=== PATIENT | female | born 2005 | race Caucasian/White ===

== ENCOUNTER 2024-03-21 09:10 | Outpatient (OUT) | payer BC, SELFPAY ==
--- NOTE | 2024-03-21 09:12 | US_ITS ---
[address] [address] Patient Name: HAM MORRISON MRN: [id number] date: 2005 Sex: F Assigned Patient Location: Current Patient Location: Accession/Order Number: [id number] Exam Date: 03/21/2024 09:16 Report Date: 03/25/2024 10:38 At the request of: EDWARD HERNANDEZ Procedure: US pelvis transvaginal EXAMINATION: US pelvis transvaginal HISTORY: INTRAUTERINE DEVICE SURVEILLANCE Z30.431 COMPARISON: No relevant comparison available. TECHNIQUE: Transabdominal and/or transvaginal sonographic examination was performed as indicated by examination type. FINDINGS: UTERUS: Normal size and appearance. Uterus size: 8.3 x 3.4 x 4.0 cm ENDOMETRIUM: Thickened inhomogeneous endometrium. IUD within fundal endometrial cavity. Endometrial thickness: 3 mm RIGHT OVARY: Normal size and appearance. Duplex Doppler demonstrates normal waveform and flow; resistive index 0.6. Ovary size: 3.3 x 2.9 x 2.2 cm LEFT OVARY: Normal size and appearance. Duplex Doppler demonstrates normal waveform and flow; resistive index 0.5. Ovary size: 3.4 x 2.0 x 2.0 cm CUL-DE-SAC: Unremarkable. No significant free fluid. BLADDER: Unremarkable. OTHER: None. US/US pelvis transvaginal IMPRESSION: 1. IUD within fundal endometrial cavity appearing to be in good position. 2. No abnormal or suspicious findings. Electronically authenticated by: SANTINO MELENDEZ Date: 03/25/2024 10:38
== END 2024-03-21 09:11 | disposition home or self-care (01) ==
LOC: US 09:10
PROVIDERS: PCP Internal Medicine; Visit Provider Obstetrics & Gynecology
DX: R25.2 Cramp and spasm (principal); Z30.431 Encounter for routine checking of intrauterine contraceptive device
CPT/HCPCS: 76830

== ENCOUNTER 2025-01-05 13:33 | Outpatient (REF) | payer BC, SELFPAY ==
--- OUTSIDE RECORDS SUMMARY | 2022-10-22 09:40 | XMS_ITS | Continuity of Care Document ---
Author [facility] Address [address] [place] [address] [place] [address] Phone Care Team Providers Care Aerobics Teacher Name Role Phone Damaris STRICKLAND, Kieran Unavailable Unavailable Allergies, Adverse Reactions, Alerts Substance Reaction Status Criticality No Known Allergies Active No Inform ation Medications Medication Instructions Dosage Effective Dates (start - stop) Status Comments Xtm-Bz-Medgla 0.18 mg/0.215 mg/0.25 mg-25 mcg tablet take 1 tablet by oral route every day 1.00 tablet - Active Procedures Procedure Date OFFICE/OUTPATIENT VISIT, [facility] URINALYSIS, AUTO, W/O SCOPE OFFICE/OUTPATIENT VISIT, [facility] Advance Directives Directive Yes / No Effective Date File Name No Information Encounters Encounter Description Practice Location Reason(s) For Visit Diagnoses Date Provider Providers Copied on Encounter OFFICE/OUTPAT IENT VISIT, [facility], [address] [place] [address], [id number], [place] tel:[phone] [facility] cold symptoms (chief complaint) NonsmokerAcute rhinitis Damaris Alcaraz. [address], [place], [id number] , [place]. tel:[phone] Referring Provider: Kieran Ocampo MD, [address] [place], [address] . tel:[phone] OFFICE/OUTPAT IENT VISIT, [facility], [address], [place], [id number], [place] tel:[phone] [facility] UTI (chief complaint) Acute UTIDysuria Joey RUSTS-PAC Maia. [address], [place], [id number] , [place]. tel:[phone] Referring Provider: Maia Cook NATALIA, [address] [place], [address] . tel:[phone] Family History Family Member Type Diagnosis Age At Onset Father Problem Hypertension Father Problem Diabetes mellitus Payers Payer name Insurance type Covered alliance party ID Talib monahan(goldie Arellano [id number] Social History Type Description Quantity Date Captured Comments Alcohol Use Details Unknown Caffeine Use Details Unknown Tobacco Use Status Current non-smoker Smoking Status Never smoker Non-Smoking Tobacco Use Details : No Details Available : No Details Available Sex Female Sexual Orientation Lesbian, rose or homosexual Vital Signs Date / Time: Height Weight BMI Pulse Rate Blood Pressure Temperature Respiratory Rate Body Surface Area Head Circumference Head Circ. Percentile Wt./Jesse. Percentile BMI percentile Pulse Ox Inhaled Ox 2:23 PM 63.00 in 51.256 kg (113.00 lbs) 20.0 2 kg/m eter (2) 77 /min 108/59 mm[Hg] 98.10 F 16 /min 29 97 % Chief Complaint And Reason For Visit From encounter dated '10/22/2022 13:40'. cold symptoms (chief complaint) Reason For Referral Reason For Referral No Information Plan Of Treatment Date Type Action Status Patient Education Urinary Tract Infection in Female Teens: Care Instructions completed Future Order: Lab Order Urine Cu lture ([id number]), Ordered on: Ordered History Of Present Illness Encounter Date Complaint History Of Prese nt Illness Comments: Itzel newman, age 16, here today for evaluation of cold symptoms. ::::::: PROBLEM ::::::: Cold symptoms::::::: HPI :::::::Ongoing for about 4-5 days now, started off with tickle in the back of her throat elevated a few days later by nasal congestion, ears feeling plugged, postnasal drip with cough and now mild sore throat.. No associated muscle aches, fatigue, fevers or chills, sinus pain or pressure redness of breath.. Denies any history of chronic rhinitis. Has had previous rhinoplasty for aesthetic purposes. No known sick contacts.::::::: ASSESSMENT/PLAN :::::::Acute rhinitis:::::::::::::::::::::::::::::::::::::::::::::::: :::::::::Questionable if this is a acute viral URI versus acute rhinitis possibly secondary to allergen exposureFor now, advised daily nasal saline rinses followed by daily Flonase along with the daily second-generation oral antihistamine.Low suspicion for strep pharyngitis with a Centor score of 0.Advised that if symptoms persist, to follow-up with PCP for possible referral to an sales special agent. 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[employer], studying nursing ::::::: EXAMINATION :::::::EXAMINATION :::::::--Constitutional: well appearing in NAD Eyes: EOMI, nonicteric-sclera ENMT: MMM, posterior oropharynx moist and pink without any tonsillar exudate, tonsils are hypertrophied bilaterally (baseline for patient), severely swollen bilateral nasal turbinates with right worse than the left, external ears appear normal, evidence of serous fluid noted behind both TMs, there are non erythematous and nonbulging, neck is supple Cardiovascular: RRR, normal S1/S2, no murmurs, gallops or rubs Respiratory: normal work of breathing, Clear to auscultation, no wheezes/rales/rhonchi Abdomen/Gastrointestinal: nontender, nondistended Musculoskeletal: No edema, no deformities Integumentary: observed skin without any concerning overlying skin changes such as rash, erythema, ecchymosis or concerns for active infection Neurological: Alert, no concerns for confusionPsychiatric: normal thought content, normal judgment Hematologic/Lymphatic: no petechiae, no ecchymosis on observed skin This note was created with the assistance of a speech-recognition program. While intending to generate a document that accurately reflects the content of the visit, no guarantee can be provided that every mistake has been identified and corrected by editing I spent 20 mins caring for this patient today, reviewing patient's chart and test results, seeing and counseling the patient, documenting in the record. cold symptoms UTI Onset: 10 Days. Presenting/Initial symptoms include dysuria, frequency, hematuria and urgency. Symptoms are not associated with diabetes, , recent catheterization or recurring urinary tract infection. Aggravating factors include urination. Denies relieving factors. Associated symptoms include dysuria, frequency, hematuria and vaginal discharge. Additional information: thick yellow vaginal discharge, odor. No itching. denies STI. Comments: Itzel newman presents with possible UTI. Is having urinary frequency, burning, bleeding, and urgency x 10 days. No fever, chills, nausea, vomiting, or back pain. Was on Amoxicillin for strep throat recently. LMP-Apr 07. No concerns for STIs. Reports that she was having some thick vaginal discharge but that has improved. Functional Status Date Functional Assessmen t No Information Instructions Date Instruction Additional Infor mation Urinary tract infect ion is an infection of the kidneys, bladder or urethra. Take all medication as directed. If prescribed Pyridium know that it can discolor your urine. Take Tylenol or Motrin for pain. Drink plenty of fluids and avoid Caffeine. Cranberry juice helps w/ urinary tract health. If you develop fever, chills, severe back or flank pain, nausea or vomiting go to the ER. Follow up with PCP in 24-48 hours if no improvement in symptoms. Related to Acute UTI Assessments Type Assessment Date assessment Nonsmoker assessment Acute rhinitis Patient Care Teams Name Effective Dates (start - stop) Status Members No Information
--- OUTSIDE RECORDS SUMMARY | 2025-01-05 11:00 | XMS_ITS | Encounter Summary ---
Author Organization [facility] Address [address] [place] [address] Care Team Providers Care Web Manager Name Role Phone Brendan Andres MD Primary Care Provider [phone] Reason for Visit * Reason Comments Gynecologic Exam Encounter Details Date Type Department Care Team (Late st Contact Info) Description 01/05/2025 11:00 AM EDT Office Visit [facility] [address] [facility] [address] Nikki Garcia PA [address] [place], [facility] Well woman exam with routine gynecological exam; Breast tenderness in female Social History Tobacco Use Types Packs/Day Years Used Date Smoking Tobacco: Never Smokeless Tobacco: Never Alcohol Use Standard Drinks/Week Comments Never 0 (1 standard drink = 0.6 oz pur e alcohol) Comments No Sex and Gender Information Value Date Recorded Sex Assigned at Not on file Legal Sex Female 7:00 PM EDT Gender Identity Not on file Sexual Orientation Not on file documented as of this encounter Last Filed Vital Signs Vital Sign Reading Time Taken Comments Blood Pressure 98/60 01/05/2025 11:12 AM EDT Pulse - - Temperature - - Respiratory Rate - - Oxygen Saturation - - Inhaled Oxygen Concentration - - Weight 53.1 kg (117 lb 1.9 oz) 01/05/2025 11:12 AM EDT Height - - Body Mass Index 20.75 11/01/2022 12:00 PM EDT documented in this encounter Progress Notes * GAIL Reyes - 01/05/2025 11:00 AM EDT Reason for Appointment: Patient ID: Maggie Rodrigues is a 19 y.o. female who presents for No chief complaint on file. Patient presents today for Annual Exam. MEDICATIONS Current Outpatient Medications Medication Instructions escitalopram (LEXAPRO) 10 mg, Oral, Daily RT ALLERGIES No Known Allergies PROBLEMS Active Ambulatory Problems Diagnosis Date Noted No Active Ambulatory Problems Resolved Ambulatory Problems Diagnosis Date Noted No Resolved Ambulatory Problems Past Medical History: Diagnosis Date Contraceptive management Depot contraception Heart murmur Irregular menses Nasal obstruction Negative test HISTORY PAST MEDICAL HISTORY SOCIAL HISTORY Past Medical History: Diagnosis Date Contraceptive management Depot contraception Heart murmur Irregular menses Nasal obstruction Negative test Social History Tobacco Use Smoking status: Never Smokeless tobacco: Never Substance Use Topics Alcohol use: Never Drug use: Never FAMILY HISTORY Family History Problem Relation Name Age of Onset Diabetes Father Hypertension Father Hyperlipidemia Maternal Grandmother Cancer Paternal Grandmother SURGICAL HISTORY Past Surgical History: Procedure Laterality Date HERNIA REPAIR Inguinal , Umbilical REVIEW OF SYSTEMS Review of Systems: Review of Systems Constitutional: Negative. HENT: Negative. Eyes: Negative. Respiratory: Negative. Cardiovascular: Negative. Gastrointestinal: Negative. Genitourinary: Negative. Musculoskeletal: Negative. Skin: Negative. Neurological: Negative. All other systems reviewed and are negative. Hematological: Negative. Endocrine: Negative. Allergic/Immunologic: Negative. OBJECTIVE Objective: Physical Exam Constitutional: Appearance: Normal appearance. She is well-developed. Genitourinary: Vulva normal. Right Adnexa: not tender and no mass present. Left Adnexa: not tender and no mass present. No cervical discharge. IUD strings visualized. Breasts: Breasts are soft. Right: Normal. Left: Tenderness present. HENT: Head: Normocephalic. Nose: Nose normal. Mouth/Throat: Mouth: Mucous membranes are moist. Cardiovascular: Rate and Rhythm: Normal rate and regular rhythm. Pulmonary: Effort: Pulmonary effort is normal. Breath sounds: Normal breath sounds. Abdominal: General: Bowel sounds are normal. There is no distension. Palpations: Abdomen is soft. Tenderness: There is no abdominal tenderness. There is no guarding or rebound. Musculoskeletal: General: No swelling. Normal range of motion. Cervical back: Normal range of motion. Right lower leg: No edema. Left lower leg: No edema. Neurological: General: No focal deficit present. Mental Status: She is alert and oriented to person, place, and time. Skin: General: Skin is warm and dry. Psychiatric: Mood and Affect: Mood normal. Behavior: Behavior normal. Vitals and nursing note reviewed. Exam conducted with a gmat instructor present. Vitals: Estimated body mass index is 18.44 kg/m?? as calculated from the following: Height as of 11/01/22: 5' 3 . Weight as of 11/19/23: 104 lb 1.9 oz. BP: No LMP recorded. ASSESSMENT & PLAN ICD-10-CM 1. Well woman exam with routine gynecological exam Z01.419 Pap Smear 2. Breast tenderness in female N64.4 LEFT BREAST TENDERNESS Patient stated that she has the Yanci IUD and desires any urinary complaints. Patient has occasional spotting, but routine cycles & nothing bothersome. Patient voiced that she did have a left breast lump near 9-10 o'clock position for about a month. Patient voiced that the lump is since gone, but patient is having nipple tenderness. Breast exam benign today, we ill order US for reassurance and due to continued nipple tenderness, no mass palpated or discharge Annual Exam: Patient presents today for an annual exam. Patient states she is doing well and complaints listed above. Ordered breast ultrasound to have done at either [facility] or [facility]. Pap was obtained without difficulty. Keflex sent to patients pharmacy for breast tenderness. Orders Placed This Encounter Procedures Left breast US complete Follow Up: Patient is to return in one year for annual unless needed otherwise. Documented by Marnie Monzon LPN on behalf of: GAIL Reyes documented in this encounter Plan of Treatment Upcoming Encounters Date Type Department Care Team (Late st Contact Info) Description 01/11/2026 11:00 AM EDT Office Visit [facility] [address] [facility] [address] Nikki Garcia PA [address] [place] [address] Scheduled Orders Name Type Priority Associated Diagnoses Orde r Schedule Pap Smear Pathology and Cytology Routine Well woman exam with routine gynecological exam Ordered: 01/05/2025 Left breast US complete Imaging Routine Breast tenderness in female Expected: 01/05/2025, Expires: 03/07/2026 documented as of this encounter Visit Diagnoses Diagnosis Well woman exam with routine gynecological exam Routine gynecological examination Breast tenderness in female documented in this encounter Care Teams Web Manager Relationship Specialty Start Date End Date Brendan Andres MD [address] [place] [address], [address] [place] [address] PCP - General Family Medicine 10/15/23 documented as of this encounter
--- OUTSIDE RECORDS SUMMARY | 2025-01-05 13:36 | XMS_ITS | Encounter Summary ---
Author Organization [facility] Address [id number] [address] [place] [address] Care Team Providers Care Human Intelligence Name Role Phone Brendan Andres MD Primary Care Provider [phone] Encounter Details Date Type Department Care Team (Late st Contact Info) Description 03/27/2024 Orders Only [facility] [address] [facility] [address] [place] [address] External, Scanning Provider Social History Tobacco Use Types Packs/Day Years Used Date Smoking Tobacco: Never Smokeless Tobacco: Never Alcohol Use Standard Drinks/Week Comments Never 0 (1 standard drink = 0.6 oz pur e alcohol) PHQ-2 Answer Date Recorded Total Score 0 09/10/2023 Childcare Answer Date Recorded Childcare Unknown 01/14/2019 Employment Answer Date Recorded Employment Unknown 01/14/2019 Purpose - Life Answer Date Recorded Purpose and direction in life Unknown Comments No Sex and Gender Information Value Date Recorded Sex Assigned at Not on file Legal Sex Female 12:01 PM EDT Gender Identity Not on file Sexual Orientation Not on file documented as of this encounter Plan of Treatment Not on file documented as of this encounter Procedures Procedure Name Priority Date/Time Associated Diagnosis Comments US TRANSVAGINAL Routine 03/21/2024 documented in this encounter Results * US TRANSVAGINAL (03/21/2024) 03/21/2024 us Scanning Provider External [facility] Final Result MANUALLY TRANSCRIBED RESULTS documented in this encounter Visit Diagnoses Not on filedocumented in this encounter Additional Health Concerns Assessment Noted Time PHQ-9 Depression Total Score: 0 09/10/19 24 10:19 AM EST documented as of this encounter Care Teams Human Intelligence Relationship Specialty Start Date End Date Brendan Andres MD [address] [place] [address], [address] [place] [address] PCP - General Pediatrics 05/19/19 documented as of this encounter
--- OUTSIDE RECORDS SUMMARY | 2025-01-05 13:36 | XMS_ITS | Clinical Summary ---
Author Organization [employer] [facility] Address [id number] [address] [place] [address] Care Team Providers Care Gas Desulfurizer Name Role Phone Brendan Andres MD Primary Care Provider [phone] Allergies No known active allergies Medications levonorgestreL (ARMANI) 14 mcg/24 hr (3 yrs) 13.5 mg intrauterine device IUD by intrauterine route. 10/22/19 24 027 Active CEPHalexin (KEFLEX) 500 mg capsule Take 1 capsule (500 mg total) by mouth 3 (three) times a day for 5 days. 15 capsule 12/15/19 25 025 Active Problems No known active problems Encounters Date Type Department Care Team Description 12/14/2024 3:30 PM EDT Clinical Support [facility] [address] [place] [phone] Brendan Andres MD Dysuria (Primary Dx) 12/14/2024 Travel 11/11/2024 10:30 AM EDT Office Visit [facility] [address] [place] [phone] Brendan Andres MD Acute cystitis with hematuria (Primary Dx) 11/10/2024 Travel 10/27/2024 3:45 PM EDT Office Visit [facility] [address] [place] [phone] Brendan Andres MD Tonsillitis (Primary Dx) 10/27/2024 Travel from Last 3 Months Immunizations Immunization Administration Dates Next Due DTaP 02/15/2009, 5,05/19/2004,03/02,2003 Hepatitis B 05/19/2004, 4,2003,10/27 HiB 03/07/2005, 4,03/02/2004,12/30 IPV 02/15/2009, 4,03/02/2004,12/30 Influenza, Injectable, quadr ivalent (PF) 05/19/2019,08/26/2012 Influenza, Unspecified 05/23/2009 MMR 02/15/2009,11/20/2004 Meningococcal Conjugate 02/10/2016 Pneumococcal Conjugate 03/02/2004,2003 Tdap 02/10/2016 Varicella 11/20/2004 Family History Medical History Relation Name Comments Hypertension Father Relation Name Status Comments Father Social History Tobacco Use Types Packs/Day Years Used Date Smoking Tobacco: Never Smokeless Tobacco: Never Tobacco Cessation:Counseling Given: No Alcohol Use Standard Drinks/Week Comments Never 0 (1 standard drink = 0.6 oz pur e alcohol) PHQ-2 Answer Date Recorded Total Score 0 11/11/2024 Childcare Answer Date Recorded Childcare Unknown 01/14/2019 Employment Answer Date Recorded Employment Unknown 01/14/2019 Hunger Screening Answer Date Recorded Within the past 12 months we worried whether our food would run out before we got money to buy more. Never True 11/11/2024 Within the past 12 months th e food we bought just didn't last and we didn't have money to get more. Never True 11/11/2024 Purpose - Life Answer Date Recorded Purpose and direction in life Unknown Comments No Sex and Gender Information Value Date Recorded Sex Assigned at Not on file Legal Sex Female 12:01 PM EDT Gender Identity Not on file Sexual Orientation Not on file Last Filed Vital Signs Vital Sign Reading Time Taken Comments Blood Pressure 108/70 11/11/2024 10:30 AM EDT Pulse 81 11/11/2024 10:30 AM EDT Temperature 36.6 C (97.8 F) 11/11/2024 10:30 AM EDT Respiratory Rate 16 11/11/2024 10:3 0 AM EDT Oxygen Saturation 100% 11/11/2024 10: 30 AM EDT Inhaled Oxygen Concentration - - Weight 52.5 kg (115 lb 12.8 oz) 025 10:30 AM EDT Height 160 cm (5' 3 ) 11/11/2024 10:30 AM EDT Body Mass Index 20.51 11/11/2024 10:30 AM EDT Plan of Treatment Health Maintenance Due Date Last Done Comments Pap Smear 10/24/2024 Influenza Vaccine 04/05/2025 07/17/2022, , 08/26/2012, Additional history exists Adult BMI Screening 11/11/2025 11/11/2024 Depression Screening 11/11/2025 11/11/2024 Tobacco Screening 11/11/2025 11/11/2024 DTaP,Tdap and Td Vaccines (7 - Td or Tdap) 02/09/2026 02/10/2016, 02/15/2009, 02/15/2009, Additional history exists Medical Devices Not on file Procedures Procedure Name Priority Date/Time Associated Diagnosis Comments POCT URINALYSIS DIPSTICK ONLY Routine 12/14/2024 Dysuria from Last 3 Months Results * (ABNORMAL) POCT urinalysis dipstick only (12/14/2024) External Poct Urine Blood Large MANUALLY TRANSCRIBED RESULTS External Poct Urine Leukocyte Esterase Moderate MANUALLY TRANSCRIBED RESULTS Urine 12/14/2024 us Brendan Andres MD POINT OF CARE TEST ORDERABLES Final Result MANUALLY TRANSCRIBED RESULTS from Last 3 Months Insurance MARY Care Teams Gas Desulfurizer Relationship Specialty Start Date End Date Brendan Andres MD [address] [place] [address], [address] [place] [address] PCP - General Pediatrics 05/19/19
--- OUTSIDE RECORDS SUMMARY | 2025-01-05 13:36 | XMS_ITS | Encounter Summary ---
Author Organization [employer] [facility] Address [id number] [address] [place] [address] Care Team Providers Care Powder Guard Name Role Phone Brendan Andres MD Primary Care Provider [phone] Reason for Visit * Reason Comments Med Refill Encounter Details Date Type Department Care Team (Late st Contact Info) Description 12/11/2023 Refill [facility] [address] [place] [phone] Brendan Andres MD [address] [place] [address], [address] [place] [address] Anxiety Social History Tobacco Use Types Packs/Day Years [...] on file documented as of this encounter Miscellaneous Notes * Telephone Encounter - Radha Morales CMA - 12/11/2023 9:46 AM EDT Patient to contact office for refill documented in this encounter Plan of Treatment Not on file documented as of this encounter Visit Diagnoses Diagnosis Anxiety Anxiety state, unspecified documented in this encounter Additional Health Concerns Assessment Noted Time PHQ-9 Depression Total Score: 0 09/10/19 24 10:19 AM EST documented as of this encounter Care Teams Powder Guard Relationship Specialty Start Date End Date Brendan Andres MD [address] [place] [address], [address] [place] [address] PCP - General Pediatrics 05/19/19 documented as of this encounter
--- OUTSIDE RECORDS SUMMARY | 2025-01-05 13:37 | XMS_ITS | Encounter Summary ---
Author Organization [facility] Address [address] [facility] [place] [address] Care Team Providers Care Home Connect Lpn Name Role Phone Brendan Andres MD Primary Care Provider [phone] Encounter Details Date Type Department Care Team (Late Contact Info) Description 01/05/2025 Bamboo flowsheet [facility] [address] [facility] [place] [address] Nikki Garcia PA [address] [place] [address] [place] [address] Social History Tobacco Use Types Packs/Day Years [...] as of this encounter Plan of Treatment Upcoming Encounters Date Type Department Care Team (Late Contact Info) Description 01/11/2026 11:00 AM EDT Office Visit [facility] [address] [facility] [place] [address] Nikki Garcia PA [address] [place] [address] Dr [place], [facility] documented as of this encounter Visit Diagnoses Not on filedocumented in this encounter Care Teams Home Connect Lpn Relationship Specialty Start Date End Date Brendan Andres MD [address] [place] [address], [address] [place] [address] PCP - General Family Medicine 10/15/23 documented as of this encounter
--- OUTSIDE RECORDS SUMMARY | 2025-01-05 13:37 | XMS_ITS | Clinical Summary ---
Author Organization [facility] Healthcare Address [address] [place] [address] Care Team Providers Care Clinical Practitioner Name Role Phone Brendan Andres MD Primary Care Provider [phone] Allergies No known active allergies Medications escitalopram (Lexapro) 10 MG tablet Take 10 mg by mouth in the morning. 09/10/2023 Active cephalexin (Keflex) 500 MG capsuleIndicati ons:Breast tenderness in female Take 1 capsule (500 mg) by mouth in the morning and 1 capsule (500 mg) in the evening and 1 capsule (500 mg) before bedtime. Do all this for 7 days. 21 capsule 01/05/2025 Active Hospital, Clinic, or Other Facility Administered Medication Ordered Dose Route Frequency Start Date End Date Status levonorgestrel (Yanci) 13.5 MG IUDIndications:Enco unter for IUD insertion IU See admin instructions 10/22/2023 10/21/2026 Active Encounters Date Type Department Care Team Description 01/05/2025 11:00 AM EDT Office Visit [facility] [address] [place] [phone] Nikki Garcia PA Well woman exam with routine gynecological exam; Breast tenderness in female 01/05/2025 Bamboo flowsheet [facility] [address] [place] [phone] Nikki Garcia PA from Last 3 Months Family History Medical History Relation Name Comments Diabetes Father Hypertension Father Hyperlipidemia Maternal Grandmother Cancer Paternal Grandmother Relation Name Status Comments Father Alive Maternal Grandmother Mother Alive Paternal Grandmother Social History Tobacco Use Types Packs/Day Years Used Date Smoking Tobacco: Never Smokeless Tobacco: Never Tobacco Cessation:Counseling Given: Not Answered Alcohol Use Standard Drinks/Week Comments Never 0 [...] 1.9 oz) 01/05/2025 11:12 AM EDT Height 160 cm (5' 3 ) 11/01/2022 12:00 PM EDT Body Mass Index 20.75 11/01/2022 12:00 PM EDT Plan of Treatment Upcoming Encounters Date Type Department Care Team (Late st Contact Info) Description 01/11/2026 11:00 AM EDT Office Visit [facility] [address] [facility] [address] [place], [phone] Nikki Garcia PA [address] [facility] [address] [place], [id number] Insurance BS Care Teams Clinical Practitioner Relationship Specialty Start Date End Date Brendan Andres MD [address] [place] [address], [address] [place] [address] PCP - General Family Medicine 10/15/23
--- OUTSIDE RECORDS SUMMARY | 2025-01-05 13:37 | XMS_ITS | Encounter Summary ---
Author Organization [facility] [facility] Address [id number] [address] [place] [address] Care Team Providers Care Twitchell Operator Name Role Phone Brendan Andres MD Primary Care Provider Encounter Details Date Type Department Care Team (Late st Contact Info) Description 11/05/2022 Telephone [facility] Internal Medicine/Pediatrics [address] [address] Ijeoma Brito, SUBSTATION MANAGER-[facility] [address] [place] [phone] Social History Tobacco Use Types Packs/Day Years Used Date Smoking Tobacco: Never Smokeless Tobacco: Never Alcohol Use Standard Drinks/Week Comments Never 0 (1 standard drink = 0.6 oz pur e alcohol) PHQ-2 Answer Date Recorded Total Score 0 12/21/2021 Childcare Answer Date Recorded Childcare Unknown 01/14/2019 Employment Answer Date Recorded Employment Unknown 01/14/2019 Purpose - Life Answer Date Recorded Purpose and direction in life Unknown Comments No Sex and Gender Information Value Date Recorded Sex Assigned at Not on file Legal Sex Female 12:01 PM EDT Gender Identity Not on file Sexual Orientation Not on file COVID-19 Exposure Response Date Recorded In the last month, have you been in contact with someone who was confirmed or suspected to have Coronavirus / COVID-19? No / Unsure 11/02/2022 9:23 AM EDT documented as of this encounter Miscellaneous Notes * Telephone Encounter - Omayra Don - 11/05/2022 1:41 PM EDT Maggie Called and is asking if something could be called in for her cough that is going to her chest. [facility] [place] [facility] where she would like it called in, if you decide to call it in for her. Please advise * Telephone Encounter - YUDELKA Stout - 11/05/2022 1:41 PM EDT I sent tessalon perlesto help suppress the cough, but I would like her to take mucinex to help expectorate the cough. Did she cloth picker the antibiotic? * Telephone Encounter - Omayra Don - 11/05/2022 1:41 PM EDT Yes she has picked up the antibiotic and she will continue with mucinex and the cough meds. * Telephone Encounter - YUDELKA Stout - 11/05/2022 1:41 PM EDT Okay, Thank you. documented in this encounter Plan of Treatment Not on file documented as of this encounter Visit Diagnoses Not on filedocumented in this encounter Additional Health Concerns Assessment Noted Time PHQ-9 Depression Total Score: 0 12/22/19 22 3:05 PM EDT documented as of this encounter Care Teams Twitchell Operator Relationship Specialty Start Date End Date Brendan Andres MD [address] [place] [address], 1 [place] [address] PCP - General Pediatrics 05/19/19 documented as of this encounter
--- OUTSIDE RECORDS SUMMARY | 2025-01-05 13:37 | XMS_ITS | Encounter Summary ---
Author Organization [facility] [employer] [facility] Address [id number] [address] [place] [address] Care Team Providers Care Meter Repair Shop Supervisor Name Role Phone Brendan Andres MD Primary Care Provider [phone] Encounter Details Date Type Department Care Team (Late st Contact Info) Description 03/05/2022 Orders Only [facility] Internal Medicine/Pediatrics [address] [facility] [address] [place] [address] External, Scanning Provider Social History [...] Procedure Name Priority Date/Time Associated Diagnosis Comments SARS COV 2 (COVID-19) STAT 03/02/2022 documented in this encounter Results * SARS COV 2 (COVID-19) (03/02/2022) EXTERNAL SARS COV 2 Negative Negative MANUALLY TRANSCRIBED RESULTS Comment:result in urgent car e encounter NASOPHARYNGEAL 03/02/2022 us Scanning Provider External MICROBIOLOGY - GENERA L ORDERABLES Final Result MANUALLY TRANSCRIBED RESULTS documented in this encounter Visit Diagnoses Not on filedocumented in this encounter Additional Health Concerns Assessment Noted Time PHQ-9 Depression Total Score: 0 12/22/19 22 3:05 PM EDT documented as of this encounter Care Teams Meter Repair Shop Supervisor Relationship Specialty Start Date End Date Brendan Andres MD [address] [place] [address], [address] [place] [address] PCP - General Pediatrics 05/19/19 documented as of this encounter
--- OUTSIDE RECORDS SUMMARY | 2025-01-05 13:37 | XMS_ITS | Encounter Summary ---
Author Organization [facility] [employer] [facility] Address [id number] [address] [place] [address] Care Team Providers Care Senior Ui Web Developer Name Role Phone Brendan Andres MD Primary Care Provider [phone] Encounter Details Date Type Department Care Team (Late st Contact Info) Description 06/22/2021 Orders Only [facility] Internal Medicine/Pediatrics [address] [facility] [address] [place] [address] External, Scanning Provider Social History Tobacco Use Types Packs/Day Years Used Date Smoking Tobacco: Never Smokeless Tobacco: Never Alcohol Use Standard Drinks/Week Comments Never 0 (1 standard drink = 0.6 oz pur e alcohol) PHQ-2 Answer Date Recorded Total Score 0 01/05/2021 Childcare Answer Date Recorded Childcare Unknown 01/14/2019 Employment Answer Date Recorded Employment Unknown 01/14/2019 Purpose - Life Answer Date Recorded Purpose and direction in life Unknown Comments Unknown Sex and Gender Information Value Date Recorded Sex Assigned at Not on file Legal Sex Female 12:01 PM EDT Gender Identity Not on file Sexual Orientation Not on file documented as of this encounter Plan of Treatment Not on file documented as of this encounter Procedures Procedure Name Priority Date/Time Associated Diagnosis Comments SARS COV 2 (COVID-19) STAT 06/21/2021 documented in this encounter Results * SARS COV 2 (COVID-19) (06/21/2021) EXTERNAL SARS COV 2 Negative Negative MANUALLY TRANSCRIBED RESULTS Comment:Result attached to u [facility] care visit NASOPHARYNGEAL 06/21/2021 us Scanning Provider External MICROBIOLOGY - GENERA L ORDERABLES Final Result MANUALLY TRANSCRIBED RESULTS documented in this encounter Visit Diagnoses Not on filedocumented in this encounter Additional Health Concerns Assessment Noted Time PHQ-9 Depression Total Score: 0 01/06/20 21 10:48 AM EDT documented as of this encounter Care Teams Senior Ui Web Developer Relationship Specialty Start Date End Date Brendan Andres MD [address] [place] [address], [address] [place] [address] PCP - General Pediatrics 05/19/19 documented as of this encounter
--- OUTSIDE RECORDS SUMMARY | 2025-01-05 13:37 | XMS_ITS | Encounter Summary ---
Author Organization [facility] Address [address] [place] [address] Care Team Providers Care Ornamental Metal Fabricator Apprentice Name Role Phone Kathy Andres MD Primary Care Provider [phone] Encounter Details Date Type Department Care Team (Late st Contact Info) Description 03/25/2024 Clinisync Result Encounter [facility] External Department Unsolicited Odilon Ambriz, DO [address] [facility] [place] [address] Social History Tobacco Use Types Packs/Day Years [...] EDT Office Visit [facility] [address] [facility] [place] [phone] Nikki Garcia PA [address] [facility] [address] [place], [place] [id number] documented as of this encounter Procedures Procedure Name Priority Date/Time Associated Diagnosis Comments US PELVIS TRANSVAGINAL 03/25/2024 10:38 AM EDT documented in this encounter Results * US PELVIS TRANSVAGINAL (03/25/2024 10:38 AM EDT) Anatomical Region Laterality Modality Other 03/25/2024 10:3 8 AM EDT Narrative 03/25/2024 10:40 AM EDT [address] [address] Ultrasound Report Signed Patient: MAGGIE RODRIGUES MR#: [id number] : 2005 Acct:[id number] Age/Sex: 18 / F ADM Date: 03/21/24 Loc: US Attending Dr: Odilon Ambriz D.O. Ordering Physician: Odilon Ambriz D.O. Date of Service: 03/21/24 Procedure(s): US pelvis transvaginal Accession Number(s): [id number] cc: Odilon Ambriz D.O.; KATHY ANDRES [place] [id number] Patient Name: MAGGIE RODRIGUES MRN: [id number] date: 2005 Sex: F Assigned Patient Location: US Current Patient Location: Accession/Order Number: [id number] Exam Date: 03/21/2024 09:16 Report Date: 03/25/2024 10:38 At the request of: ODILON AMBRIZ Procedure: US pelvis transvaginal EXAMINATION: US pelvis transvaginal HISTORY: INTRAUTERINE DEVICE SURVEILLANCE Z30.431 COMPARISON: No relevant comparison available. TECHNIQUE: Transabdominal and/or transvaginal sonographic examination was performed as indicated by examination type. FINDINGS: UTERUS: Normal size and appearance. Uterus size: 8.3 x 3.4 x 4.0 cm ENDOMETRIUM: Thickened inhomogeneous endometrium. IUD within fundal endometrial cavity. Endometrial thickness: 3 mm RIGHT OVARY: Normal size and appearance. Duplex Doppler demonstrates normal waveform and flow; resistive index 0.6. Ovary size: 3.3 x 2.9 x 2.2 cm LEFT OVARY: Normal size and appearance. Duplex Doppler demonstrates normal waveform and flow; resistive index 0.5. Ovary size: 3.4 x 2.0 x 2.0 cm CUL-DE-SAC: Unremarkable. No significant free fluid. BLADDER: Unremarkable. OTHER: None. US/US pelvis transvaginal IMPRESSION: 1. IUD within fundal endometrial cavity appearing to be in good position. 2. No abnormal or suspicious findings. Electronically authenticated by: TONY RAGSDALE Date: 03/25/2024 10:38 Dictated By: Tony Ragsdale M.D. Signed By: 03/25/24 1040 DD/ 1038 TD/TT: Software Quality Assurance Engineer: Procedure Note Radiology, Radiologist, MD - 03/25/2024 [place] [address] Ultrasound Report Signed Patient: MAGGIE RODRIGUES JMR#: [id number] : 2005Acct:[id number] Age/Sex: 18 FADM Date: 03/21/24 Loc: US Attending Dr: Odilon Ambriz D.O. Ordering Physician: Odilon Ambriz D.O. Date of Service: 03/21/24 Procedure(s): US pelvis transvaginal Accession Number(s): [id number] cc: Odilon Ambriz D.O.; KATHY ANDRES [place] [id number] Patient Name: MAGGIE RODRIGUES MRN: [id number] date: 2005 Sex: F Assigned Patient Location: US Current Patient Location: Accession/Order Number: [id number] Exam Date: 03/21/2024 09:16 Report Date: 03/25/2024 10:38 At the request of: ODILON AMBRIZ Procedure: US pelvis transvaginal EXAMINATION: US pelvis transvaginal HISTORY: INTRAUTERINE DEVICE SURVEILLANCE Z30.431 COMPARISON: No relevant comparison available. TECHNIQUE: Transabdominal and/or transvaginal sonographic examination was performed as indicated by examination type. FINDINGS: UTERUS: Normal size and appearance. Uterus size: 8.3 x 3.4 x 4.0 cm ENDOMETRIUM: Thickened inhomogeneous endometrium. IUD within fundal endometrial cavity. Endometrial thickness: 3 mm RIGHT OVARY: Normal size and appearance. Duplex Doppler demonstratesnormal waveform and flow; resistive index 0.6. Ovary size: 3.3 x 2.9 x 2.2 cm LEFT OVARY: Normal size and appearance. Duplex Doppler demonstrates normal waveform and flow; resistive index 0.5. Ovary size: 3.4 x 2.0 x 2.0 cm CUL-DE-SAC: Unremarkable. No significant free fluid. BLADDER: Unremarkable. OTHER: None. US/US pelvis transvaginal IMPRESSION: 1. IUD within fundal endometrial cavity appearing to be in good position. 2. No abnormal or suspicious findings. Electronically authenticated by: TONY RAGSDALE Date: 03/25/2024 10:38 Dictated By: Tony Ragsdale M.D. Signed By:03/25/24 1040 DD/ 1038 TD/TT: Software Quality Assurance Engineer: us Odilon Pb DO [facility] Final Result documented in this encounter Visit Diagnoses Not on filedocumented in this encounter Care Teams Ornamental Metal Fabricator Apprentice Relationship Specialty Start Date End Date Kathy Andres MD [address] [place] [address], [address] [place] [address] PCP - General Family Medicine 10/15/23 documented as of this encounter
[2025-01-07 15:08] LABS: Age Gdln ACOG Testing Note (.); IGP, rfx Aptima HPV ASCU Note (.)
== END 2025-01-05 13:34 | disposition home or self-care (01) ==
LOC: LAB 13:33
PROVIDERS: PCP Internal Medicine; Visit Provider Physician Assistant
DX: Z01.419 Encounter for gynecological examination (general) (routine) without abnormal findings (principal)
CPT/HCPCS: 88175